=== PATIENT | male | born 1980 | race African-American/Black ===

== ENCOUNTER 2018-04-08 20:34 | Emergency (ER) | payer SELFPAY ==
[~2018-04-08 20:34] MED LIST: SUCCINYLCHOLINE CHLORIDE INJ 200 MG/10 ML VIAL ONE
[2018-04-08] MEDS ORDERED: NALOXONE HCL INJ 2 MG/2 ML DISP.SYRIN IV ONE (20:47)
[2018-04-08] MEDS ORDERED: NALOXONE HCL INJ 2 MG/2 ML DISP.SYRIN ONE (20:47)
[2018-04-08] MEDS ORDERED: DEXTROSE 50%-WATER 25 GM/50 ML DISP.SYRIN IV ONE ×2 (20:48)
[2018-04-08] MEDS ORDERED: ETOMIDATE INJ/PF 20 MG/10 ML SDV IV ONE ×2 (20:48)
[2018-04-08] MEDS ORDERED: SUCCINYLCHOLINE CHLORIDE INJ 200 MG/10 ML VIAL IV ONE (20:55)
[2018-04-08] MEDS ORDERED: MIDAZOLAM HCL 50 MG/100 ML RTUINJ ONE (21:01)
[2018-04-08] MEDS ORDERED: PROPOFOL 1,000 MG/100 ML INFUS..BTL IV ONE (21:11)
[2018-04-08 21:12] LABS: ABSOLUTE LYMPHOCYTES (AUTO) 1.7 10^3/uL (0.5-4.7); ABSOLUTE MONOCYTES (AUTO) 0.5 10^3/uL (0.1-1.4); ABSOLUTE NEUT (AUTO) 1.6 10^3/uL (1.7-8.2); BASOPHILS % (AUTO) 0.8 % (0-2); EOSINOPHILS % (AUTO) 0.9 % (0-6); HEMATOCRIT 41.4 % (37.9-51.0); HEMOGLOBIN 13.6 g/dL (13.5-17.0); LYMPHOCYTES % (AUTO) 44.2 % (13-45); MEAN CORPUSCULAR HEMOGLOBIN 29.6 pg (27.0-33.4); MEAN CORPUSCULAR HGB CONC 32.9 g/dL (32.0-36.0); MEAN CORPUSCULAR VOLUME 90 fl (80-97); MONOCYTES % (AUTO) 12.1 % (3-13); PLATELET COUNT 238 10^3/uL (150-450); RED BLOOD COUNT 4.61 10^6/uL (4.35-5.55); RED CELL DISTRIBUTION WIDTH 12.2 % (11.5-14.0); TOTAL CELLS COUNTED % (AUTO) 100 %; WHITE BLOOD COUNT 3.8 10^3/uL (4.0-10.5)
[2018-04-08 21:14] LABS: INTERNATIONAL RATION (INR) 0.93; PROTHROMBIN TIME 12.9 SEC (11.4-15.4)
[2018-04-08 21:15] LABS: PARTIAL THROMBOPLASTIN TIME 31.6 SEC (23.5-35.8)
[2018-04-08 21:20] LABS: ALANINE AMINOTRANSFERASE 20 U/L (21-72); ALBUMIN 4.1 g/dL (3.5-5.0); ALKALINE PHOSPHATASE 78 U/L (38-126); ANION GAP 12 (5-19); ASPARTATE AMINO TRANSFERASE 23 U/L (17-59); BILIRUBIN,DIRECT 0.3 mg/dL (0.0-0.4); BILIRUBIN,TOTAL 0.4 mg/dL (0.2-1.3); BLOOD UREA NITROGEN 11 mg/dL (7-20); CALCIUM 9.5 mg/dL (8.4-10.2); CARBON DIOXIDE 28 mmol/L (22-30); CHLORIDE 105 mmol/L (98-107); GLUCOSE 71 mg/dL (75-110); LIPASE 95.3 U/L (23-300); POTASSIUM 3.8 mmol/L (3.6-5.0); SODIUM 144.8 mmol/L (137-145); TOTAL PROTEIN 7.1 g/dL (6.3-8.2)
--- NOTE | 2018-04-08 21:21 | ER Document Report ---
ED General - General Chief Complaint: Unresponsive Stated Complaint: UNRESPONSIVE Time Seen by Provider: 04/08/18 20:43 Mode of Arrival: Medic Information source: Emergency Med Personnel Cannot obtain history due to: Altered mental status Notes: Patient brought to the ED by EMS unresponsive episode. Patient was with girlfriend when he began complaining of not feeling well. He said his R hand felt numb. The girlfriend thought he felt warm to touch and could have been running a fever. Patient then went unresponsive. Girlfriend says that he stopped breathing. She did chest compressions and contacted 911. When EMS arrived, patient had a pulse. He continued to be unresponsive. Girlfriend says she's been dating him for 3 days. He told her that he had a history of diabetes , seizures, and hypertension. He does not take medications for these. Girlfriend denies tonic clonic movements. EMS did not note any tonic clonic movements en route. In the ED, patient is unresponsive. GCS of 3. Patient's accucheck shows a glucose in the 70s. Patient given an amp of D50. Given 2mg of narcan without any change. Patient intubated. TRAVEL OUTSIDE OF THE [place] IN LAST 30 DAYS: No - HPI Patient complains to provider of: unresponsiveness Onset: Just prior to arrival Onset/Duration: Sudden Quality of pain: No pain Severity: None Associated symptoms: Other - numbness to the Right hand Similar symptoms previously: No Recently seen / treated by doctor: No Past Medical History - Social History Smoking Status: Current Every Day Smoker Drug Abuse: None Family History: Reviewed & Not Pertinent Patient has suicidal ideation: No Patient has homicidal ideation: No - Past Medical History Cardiac Medical History: Reports: Hx Hypertension Neurological Medical History: Reports: Hx Seizures Endocrine Medical History: Reports: Hx Diabetes Mellitus Type 1 Renal/ Medical History: Denies: Hx Peritoneal Dialysis Review of Systems - Review of Systems -: Yes ROS unobtainable due to patient's medical condition Physical Exam - Vital signs Vitals: Pulse Ox 100 04/08/18 20:34 Interpretation: Other - hypothermic - Notes Notes: PHYSICAL EXAMINATION: GENERAL: Unresponsive. GCS of 3. HEAD: Atraumatic EYES: Pupils equal round and reactive to light, conjunctiva are normal, corneal reflex. ENT: Nares patent, oropharynx clear without exudates. Moist mucous membranes. NECK: Supple without lymphadenopathy LUNGS: Breath sounds clear to auscultation bilaterally and equal. No wheezes rales or rhonchi. HEART: Regular rate and rhythm without murmurs ABDOMEN: Soft, nontender, nondistended abdomen. No guarding, no rebound. No masses appreciated. Musculoskeletal: Normal range of motion, no pitting or edema. No cyanosis. NEUROLOGICAL: Corneal and Gag reflex intact. Moving all 4 extremities. SKIN: Warm, Dry, normal turgor, no rashes or lesions noted. Course - Re-evaluation Re-evalutation: 04/08/18 23:32 Patient initially started on a versed drip. He was moving all four extremities and appeared agitiated. Propofol added. Labs and imaging obtained. Head CT is normal. CXR does not show an acute process. ETT in place. Labs are WNL. I spoke with the hospitalist, Dr. Kincaid. He feels the patient needs to be transferred to a hospital where a neurologist can evaluate the patient. I contacted [facility]. 04/08/18 23:44 Dr. Rubalcava at [facility] accepts transfer of the patient. Patient currently stable. Awaiting bed assignment. Patient signed out to Dr. Cheney. - Vital Signs Vital signs: Temp Pulse Resp BP Pulse Ox 16 105/73 98 04/08/18 23:01 04/08/18 23:01 04/08/18 23:01 - Laboratory Result Diagrams: 04/08/18 20:40 04/08/18 20:40 Laboratory results interpreted by me: 04/08/18 04/08/18 04/08/18 20:40 20:40 20:55 WBC 3.8 L Absolute Neutrophils 1.6 L ABG pH ABG pO2 ABG HCO3 ABG Total CO2 ABG O2 Saturation Glucose 71 L POC Glucose 182 H ALT 20 L Urine Glucose (UA) Urine Urobilinogen Salicylates < 1.0 L Acetaminophen < 10 L 04/08/18 04/08/18 04/08/18 21:40 21:43 23:40 WBC Absolute Neutrophils ABG pH 7.49 H ABG pO2 41.0 L 161.7 H ABG HCO3 27.9 H ABG Total CO2 29.0 H ABG O2 Saturation 75.6 L 99.2 H Glucose POC Glucose ALT Urine Glucose (UA) >=500 H Urine Urobilinogen 4.0 H Salicylates Acetaminophen - EKG Interpretation by Ok EKG shows normal: Sinus rhythm Rate: Normal Rhythm: NSR - Ventricular rate 83, MN interval 140, QRS duration 82, QTc 423, no ischemic changes. Procedures - Intubation Orotracheal Time of Intubation: 20:45 Airway evaluation: Normal anatomy Mallampati Classification: Class 2 Medications: Etomidate, Succinylcholine Intubation method: Orotracheal Blade type: Other - glidescope Blade size: 4 Equipment used: Glidescope ETT size: 7.5 ETT secured at: Gums ETT secured at (cm): 23 Breath Sounds after Intubation: Equal End tidal CO2 confirmed: Yes Post Intubation Xray: Yes Intubation Complications: No complications Discharge - Discharge Clinical Impression: Unresponsive state Condition: Stable Disposition: [facility]
[2018-04-08 21:26] LABS: ACETAMINOPHEN < 10 ug/mL (10-30); ALCOHOL < 10 mg/dL (NONE DETECTED); SALICYLATE < 1.0 mg/dL (2.0-20.0)
[2018-04-08 22:04] LABS: ARTERIAL BLOOD BASE EXCESS 0.3 mmol/L; ARTERIAL BLOOD H2CO3 1.31 mmol/L (1.05-1.35); ARTERIAL BLOOD HCO3 25.6 mmol/L (20-26); ARTERIAL BLOOD O2 SATURATION 75.6 % (94-98); ARTERIAL BLOOD PCO2 43.5 mmHg (35-45); ARTERIAL BLOOD PH 7.39 (7.35-7.45); ARTERIAL BLOOD TOTAL CO2 26.9 mmol/L (23-27)
[2018-04-08 22:06] LABS: ARTERIAL BLOOD FIO2 30%
[2018-04-08 22:11] LABS: APPEARANCE,URINE CLEAR; BILIRUBIN,URINE NEGATIVE (NEGATIVE); COLOR,URINE YELLOW; GLUCOSE, URINE >=500 mg/dL (NEGATIVE); KETONES,URINE NEGATIVE (NEGATIVE); LEUKOCYTE ESTERASE,URINE NEGATIVE (NEGATIVE); NITRITE,URINE NEGATIVE (NEGATIVE); PROTEIN,URINE NEGATIVE (NEGATIVE); URINE SPECIFIC GRAVITY 1.021
--- NOTE | 2018-04-08 22:15 | RADIOLOGY REPORT (SQ) ---
EXAM DESCRIPTION: CHEST SINGLE VIEW COMPLETED DATE/TIME: 04/08/2018 9:31 pm REASON FOR STUDY: intubation COMPARISON: None. EXAM PARAMETERS: NUMBER OF VIEWS: One view TECHNIQUE: Single frontal radiograph of the chest. RADIATION DOSE: N/A LIMITATIONS: None. FINDINGS: TEMPORARY SUPPORT DEVICES:ETT in expected location. LUNGS AND PLEURA: No consolidation, pleural effusion or pneumothorax. MEDIASTINUM AND HILAR STRUCTURES: No masses. Contour normal. HEART AND VASCULAR STRUCTURES: Heart size normal. No overt vascular congestion. BONES: Partially visualized orthopedic hardware at the cervical spine. OTHER: There is gaseous distension of the visualized stomach. IMPRESSION: 1. No acute radiographic finding in the chest. 2. Endotracheal tube tip in expected location. 3. Gaseous distension of the visualized stomach. TECHNICAL DOCUMENTATION: JOB ID: [id number] 2010 [employer]- All Rights Reserved Reading location - IP/workstation name: [email or web address]
--- NOTE | 2018-04-08 22:19 | RADIOLOGY REPORT (SQ) ---
EXAM DESCRIPTION: CT HEAD WITHOUT COMPLETED DATE/TIME: 04/08/2018 10:03 pm REASON FOR STUDY: ams COMPARISON: None. TECHNIQUE: Axial images acquired through the brain without intravenous contrast. Images reviewed wi th bone, brain and subdural windows. Images stored on PACS. All CT scanners at this facility use dose modulation, iterative reconstruction, and/or weight based d osing when appropriate to reduce radiation dose to as low as reasonably achievable (ALARA). [facility]: Dose Right [facility]: CareDose [facility]: Dose Right [facility]: Teradose 4D [facility]: Smart Kovio RADIATION DOSE: CT Rad equipment meets quality standard of care and radiation dose reduction techniq ues were employed. CTDIvol: 53.2 mGy. DLP: 1070 mGy-cm. mGy. LIMITATIONS: None. FINDINGS: VENTRICLES: Normal size and contour. CEREBRUM: No mass effect. No hemorrhage. No midline shift. Normal leahy/white matter differentiatio n. No evidence for acute territorial infarction. CEREBELLUM: No mass effect. No hemorrhage. No alteration of density. No evidence for acute infarct ion. EXTRAAXIAL SPACES: No fluid collections. ORBITS AND GLOBE: Symmetrical contour of the globes. CALVARIUM: No depressed skull fracture. PARANASAL SINUSES: No air-fluid level. SOFT TISSUES: No hematoma. IMPRESSION: No acute intracranial hemorrhage or acute territorial infarct. EVIDENCE OF ACUTE STROKE: NO. COMMENT: Quality ID # [id number]: Final reports with documentation of one or more dose reduction techniques (e.g., Automated exposure control, adjustment of the mA and/or kV according to patient size, use of iterative reconstruction technique) TECHNICAL DOCUMENTATION: JOB ID: [id number] 2010 [employer] All Rights Reserved Reading location - IP/workstation name: [email or web address]
[2018-04-08 22:31] LABS: URINE AMPHETAMINES SCREEN NEGATIVE; URINE BARBITURATES SCREEN NEGATIVE; URINE BENZODIAZEPINES SCREEN UNCONFIRMED POSITIVE; URINE COCAINE SCREEN NEGATIVE; URINE MARIJUANA (THC) SCREEN NEGATIVE; URINE METHADONE SCREEN NEGATIVE; URINE PHENCYCLIDINE SCREEN NEGATIVE
--- NOTE | 2018-04-08 22:49 | RADIOLOGY REPORT (SQ) ---
EXAM DESCRIPTION: XR ABDOMEN 1 VIEW (KUB) CLINICAL HISTORY: 34 years Male, ngt COMPARISON: None. NUMBER OF VIEWS/TECHNIQUE: 2 FINDINGS: Intestinal gas pattern is within normal limits. Enteric tube tip is at the left upper abdominal quadrant. Pelvic/Gordillo catheter. No suspicious calcification. Grossly intact skeletal structures. IMPRESSION: No acute findings.
[2018-04-08] MEDS ORDERED: NORMAL SALINE 1000 ML 1,000 ML IV ONE (23:21)
[2018-04-08] MEDS ORDERED: MIDAZOLAM HCL 50 MG/100 ML RTUINJ IV-INFUSE PRN (23:42)
[2018-04-09] LABS: ARTERIAL BLOOD BASE EXCESS 4.5 mmol/L; ARTERIAL BLOOD H2CO3 1.12 mmol/L (1.05-1.35); ARTERIAL BLOOD HCO3 27.9 mmol/L (20-26); ARTERIAL BLOOD O2 SATURATION 99.2 % (94-98); ARTERIAL BLOOD PCO2 37.3 mmHg (35-45); ARTERIAL BLOOD PH 7.49 (7.35-7.45); ARTERIAL BLOOD PO2 161.7 mmHg (80-100)
[2018-04-09 00:02] LABS: ARTERIAL BLOOD FIO2 30%
[2018-04-09] MEDS ORDERED: PROPOFOL 1,000 MG/100 ML INFUS..BTL IV ONE (00:54)
[2018-04-09 01:18] VITALS: BP 108/74
--- NOTE | 2018-04-09 07:48 | EKG REPORT ---
SEVERITY:- NORMAL ECG - SINUS RHYTHM : Confirmed by: Brock Milan MD 09-Apr-2018 07:47:30
[2018-04-09] MEDS ORDERED: PROPOFOL 1,000 MG/100 ML INFUS..BTL IV PRN (21:30)
== END 2018-04-09 01:35 | disposition short-term general hospital (02) ==
LOC: ER 20:34
DX: R41.82 Altered mental status, unspecified (principal); R20.0 Anesthesia of skin; T68.XXXA Hypothermia, initial encounter; E10.9 Type 1 diabetes mellitus without complications; I10 Essential (primary) hypertension; F17.200 Nicotine dependence, unspecified, uncomplicated
CPT/HCPCS: 93005; 99285; 96361; 51702; 96374; 96375; 36415; 87040; 82962; 80307 ×4; 82803; 83690; 85025; 85610; 85730; 80053; 81001; 84484; 83605; 71045; 74018; 70450; 94660; 93010; 31500; J3490 ×2; J2704 ×2; J0330; J2310; J2250; J7030